=== PATIENT | male | born 1970 | race African-American/Black ===

== ENCOUNTER 2018-03-10 06:45 | Inpatient (IN) | payer MEDICAID ==
[2018-03-10] VITALS (9 sets, daily range): BP systolic 97–121; BP diastolic 57–78
[~2018-03-10] VITALS: Ht 175.3 cm; Wt 80.4 kg
[2018-03-10] MEDS ORDERED: ASPI-1160 MT (07:46)
[2018-03-10] MEDS ORDERED: ATOR40TA70 MT (07:46)
[2018-03-10] MEDS ORDERED: FURO40TA5 PO (07:46)
[2018-03-10] MEDS ORDERED: MORP30TA66 MT (07:46)
[2018-03-10] MEDS ORDERED: CARV12.545 MT (07:46)
[2018-03-10] MEDS ORDERED: METF-414 MT (07:46)
[2018-03-10] MEDS ORDERED: POTA20TA82 PO (07:46)
[2018-03-10] MEDS ORDERED: METH-611 MT (07:46)
[2018-03-10] MEDS ORDERED: ISOS5TAB4 MT (07:46)
[2018-03-10] MEDS ORDERED: SPIR25TA6 MT (07:46)
[2018-03-10 07:59] LABS: CHLORIDE 97 mEq/L (98-107)
[2018-03-10 08:00] LABS: PARTIAL THROMBOPLASTIN TIME 27.6 sec (23.4-31.0); PROTHROMBIN TIME 10.3 sec (9.1-11.1)
[2018-03-10 08:03] LABS: HEMATOCRIT 40.3 % (42.0-52.0); HEMOGLOBIN 14.3 g/dL (14.0-18.0); MEAN CORPUSCULAR HEMOGLOBIN 29.6 pg (28.0-32.0); MEAN CORPUSCULAR VOLUME 83.6 fL (80.0-94.0); PLATELET 272 x1000/uL (130-400); RED BLOOD CELL COUNT 4.83 mill/uL (4.7-6.1); RED CELL DISTRIBUTION WIDTH 12.8 % (11.6-14.6)
[2018-03-10] MEDS ORDERED: IOHEXOL-300 100 ML BOTTLE ONE (08:16)
[2018-03-10] MEDS ORDERED: PROPOFOL 200MG/20ML VIAL IV ONE (08:23)
[2018-03-10] MEDS ORDERED: GENTAMICIN SULF 40MG/ML 2ML VIAL ONE (08:44)
[2018-03-10] MEDS ORDERED: GENTAMICIN/NS IRRIGATION 500 ML IR ONE (08:44)
[2018-03-10] MEDS ORDERED: LIDOCAINE HCL 1% 20ML VIAL (Pyxis) INJ ONE (08:58)
[2018-03-10] MEDS ORDERED: HYDROMORPHONE HCL/PF 2MG/ML CPJ IV PRN ×2 (10:15→10:30)
[2018-03-10] MEDS ORDERED: HYDROCODONE/ACETAMINOPHEN 5/325MG TABLET PO PRN (10:15)
[2018-03-10] MEDS ORDERED: ONDANSETRON HCL 4MG/2ML INJ IV PRN (10:30)
[2018-03-10] MEDS ORDERED: METHADONE HCL 10MG TABLET PO SCH (13:25)
[2018-03-10] MEDS ORDERED: PHENYLEPHRINE HCL 10 MG/ML 1ML (IV VIAL) IV ONE (13:44)
[2018-03-10] MEDS ORDERED: MIDAZOLAM HCL 2 MG/2 ML VIAL ONE (13:44)
[2018-03-10] MEDS: ISOSORBIDE DINITRATE 10MG TABLET PO SCH (14:13)
[2018-03-10] MEDS: POTASSIUM CHLORIDE 20MEQ TABLET SR PO SCH ×2 (15:07→17:41)
[2018-03-10] MEDS: CARVEDILOL 12.5MG TABLET PO SCH (17:42)
[2018-03-10] MEDS: FUROSEMIDE 40MG TABLET PO SCH (20:22)
[2018-03-10] MEDS: METHADONE HCL 10MG TABLET PO SCH (20:22)
[2018-03-10] MEDS ORDERED: ATORVASTATIN CALCIUM 40MG TABLET PO SCH (21:00)
[2018-03-11] VITALS (11 sets, daily range): BP systolic 99–127; BP diastolic 60–78
[2018-03-11] MEDS: ISOSORBIDE DINITRATE 10MG TABLET PO SCH ×2 (08:35→12:19)
[2018-03-11] MEDS: POTASSIUM CHLORIDE 20MEQ TABLET SR PO SCH ×2 (08:40→12:24)
[2018-03-11] MEDS: FUROSEMIDE 40MG TABLET PO SCH (08:41)
[2018-03-11] MEDS: METHADONE HCL 10MG TABLET PO SCH ×2 (08:42→12:24)
[2018-03-11] MEDS ORDERED: SPIRONOLACTONE 25MG TABLET PO SCH (09:00)
[2018-03-11] MEDS ORDERED: ASPIRIN 81MG TABLET PO SCH (09:00)
[2018-03-11] MEDS: CARVEDILOL 12.5MG TABLET PO SCH (10:05)
[2018-03-11 10:15] LABS: BASOPHILS % 0.6 % (0.0-2.0); EOSINOPHILS % 7.5 % (0.0-5.0); HEMATOCRIT. 40.9 % (42.0-52.0); HEMOGLOBIN. 14.5 g/dL (14.0-18.0); LYMPHOCYTES % 32.7 % (20.0-50.0); MEAN CORPUSCULAR VOLUME 84.6 fL (80.0-94.0); MEAN PLATELET VOLUME 8.4 fl (7.4-10.4); MONOCYTES % 11.5 % (2.0-8.0); NEUTROPHILS % 47.7 % (40.0-76.0); PLATELET 247 x1000/uL (130-400); RED BLOOD CELL COUNT 4.84 mill/uL (4.7-6.1); RED CELL DISTRIBUTION WIDTH 12.6 % (11.6-14.6)
[2018-03-11 10:52] LABS: CHLORIDE 100 mEq/L (98-107)
== END 2018-03-11 13:40 | disposition home or self-care (01) | DRG 161 ==
LOC: CCL 06:45 → 3WST 06:46
PROVIDERS: ADMIT Internal Medicine Clinical Cardiac Electrophysiology; ATTEND Internal Medicine Clinical Cardiac Electrophysiology
PROC: 02HK3KZ Insertion of Defibrillator Lead into Right Ventricle, Percutaneous Approach (ICD-10-PCS; 2018-03-10)
PROC: 0JH608Z Insertion of Defibrillator Generator into Chest Subcutaneous Tissue and Fascia, Open Approach (ICD-10-PCS; principal; 2018-03-10 08:00)
DX: I42.0 Dilated cardiomyopathy (principal); I11.0 Hypertensive heart disease with heart failure; I50.22 Chronic systolic (congestive) heart failure; E11.9 Type 2 diabetes mellitus without complications; F10.21 Alcohol dependence, in remission; J44.9 Chronic obstructive pulmonary disease, unspecified; Z77.22 Contact with and (suspected) exposure to environmental tobacco smoke (acute) (chronic); Z79.4 Long term (current) use of insulin; Z87.891 Personal history of nicotine dependence
CPT/HCPCS: 33249; 36415; 71045; 75820; 80048; 85027; 93005; 93641; C1722; C1892; C1893; C1899; J1580; J1644; J2250; J2370; J2704; J3490; J7050; Q9967

== ENCOUNTER 2025-03-10 11:14 | Inpatient (IN) | payer MEDICAID ==
[~2025-03-10] VITALS: Ht 175.3 cm; Wt 76.7 kg
[~2025-03-10 11:14] MED LIST: ASPI-1160 MT; ATOR40TA70 MT; CARV12.545 MT; FURO40TA5 PO; ISOS5TAB4 MT; METH-819 MT; MORP30TA66 MT; POTA-205 PO; SPIR25TA6 MT
[2025-03-10 11:16] VITALS: O2SAT 98
[2025-03-10] MEDS: MORPHINE SULFATE 4 MG/ML INJ (FOR IV/IM USE) IV ONE (11:36)
[2025-03-10 11:50] LABS: BASOPHILS % 0.8 % (0.0-2.0); EOSINOPHILS % 12.3 % (0.0-5.0); HEMATOCRIT. 33.4 % (42.0-52.0); HEMOGLOBIN. 11.3 g/dL (14.0-18.0); LYMPHOCYTES % 32.8 % (20.0-50.0); MEAN PLATELET VOLUME 8.9 fl (7.4-10.4); MONOCYTES % 11.1 % (2.0-8.0); NEUTROPHILS % 43.0 % (40.0-76.0); PLATELET 133 x1000/uL (130-400); RED BLOOD CELL COUNT 3.91 mill/uL (4.7-6.1); RED CELL DISTRIBUTION WIDTH 14.6 % (11.6-14.6)
[2025-03-10 12:02] LABS: CREATININE 1.4 mg/dL (0.6-1.3); UREA NITROGEN BLOOD 20 mg/dL (9-23)
[2025-03-10 12:03] LABS: TROPONIN I HIGH SENSITIVITY 6 ng/L (3.0-53)
[2025-03-10 14:50] VITALS: BP 110/74; PULSE 87; RESP 13; TEMP 36.8; O2SAT 98
[2025-03-10 15:01] VITALS: BP 110/74; PULSE 82; RESP 13; TEMP 36.8072
[2025-03-10] MEDS ORDERED: MAGNESIUM/ALUMINUM HYDROXIDE/SIMETHICONE 30ML UDC PO PRN (15:15)
[2025-03-10] MEDS ORDERED: MORPHINE SULFATE 2 MG/ML INJ (NOT FOR IM USE) IV PRN (15:15)
[2025-03-10] MEDS ORDERED: ONDANSETRON HCL 4MG/2ML INJ IV PRN (15:15)
[2025-03-10] MEDS ORDERED: ACETAMINOPHEN 325MG TABLET PO PRN (15:15)
[2025-03-10] MEDS ORDERED: CLONIDINE 0.1MG TABLET PO PRN (15:15)
[2025-03-10] MEDS ORDERED: ZOLPIDEM TARTRATE 5MG TABLET PO PRN (15:15)
[2025-03-10] MEDS: HYDROCODONE/ACETAMINOPHEN 5/325MG TABLET PO PRN (15:31)
[2025-03-10] MEDS ORDERED: NALOXONE HCL 0.4MG/ML VIAL IV PRN (15:45)
[2025-03-10 16:00] VITALS: BP 102/88; PULSE 76; RESP 14; TEMP 36.7; O2SAT 99
[2025-03-10 16:16] LABS: *AMPHETAMINES SCREEN URINE PRESUMPTIVE POSITIVE (NEGATIVE); *BARBITURATES SCREEN URINE NEGATIVE (NEGATIVE); *BENZODIAZEPINES SCREEN URINE NEGATIVE (NEGATIVE); *COCAINE SCREEN URINE NEGATIVE (NEGATIVE); METHADONE URINE SCREEN NEGATIVE (NEGATIVE); OPIATES URINE SCREEN PRESUMPTIVE POSITIVE (NEGATIVE); PHENCYCLIDINE URINE SCREEN NEGATIVE (NEGATIVE)
[2025-03-10 16:17] LABS: CANNABINOID URINE SCREEN NEGATIVE (NEGATIVE); ECSTASY MDMA SCREEN URINE NEGATIVE (NEGATIVE)
[2025-03-10 16:25] LABS: CLARITY URINE CLEAR (CLEAR); COLOR URINE DARK YELLOW (YELLOW); GLUCOSE URINE NEGATIVE (NEGATIVE); KETONES URINE NEGATIVE (NEGATIVE); LEUKOCYTE ESTERASE URINE NEGATIVE (NEGATIVE); NITRITE URINE NEGATIVE (NEGATIVE); OCCULT BLOOD URINE NEGATIVE (NEGATIVE); PH URINE 7.0 (4.5-8.0); PROTEIN URINE TRACE (NEGATIVE); SPECIFIC GRAVITY URINE 1.017 (1.005-1.030); UROBILINOGEN URINE 4.0 E.U./dL (0.2-1.0)
[2025-03-10 16:46] LABS: BACTERIA URINE NONE SEEN; RBC URINE NONE SEEN /hpf (0-2); WBC URINE NONE SEEN /hpf (0-2)
[2025-03-10] MEDS ORDERED: METHADONE HCL 10MG TABLET PO SCH (17:00)
[2025-03-10] MEDS: ENOXAPARIN 40MG/0.4ML SYR SUBCUT SCH (17:37)
[2025-03-10] MEDS: ISOSORBIDE DINITRATE 10MG TABLET PO SCH (17:38)
[2025-03-10] MEDS: FUROSEMIDE 40MG TABLET PO SCH (17:38)
[2025-03-10 20:00] VITALS: BP 114/75; PULSE 86; RESP 18; TEMP 36.6; O2SAT 96
[2025-03-10] MEDS: ATORVASTATIN CALCIUM 40MG TABLET PO SCH (20:07)
[2025-03-10] MEDS: CARVEDILOL 12.5MG TABLET PO SCH (20:08)
[2025-03-10] MEDS ORDERED: MORPHINE SULFATE 4 MG/ML INJ (FOR IV/IM USE) IV PRN (22:15)
[2025-03-11] VITALS: BP 99/57; PULSE 80; RESP 18; TEMP 36.6; O2SAT 96
[2025-03-11 00:50] LABS: TROPONIN I HIGH SENSITIVITY 9 ng/L (3.0-53)
[2025-03-11 04:00] VITALS: BP 96/62; PULSE 78; RESP 18; TEMP 36.3; O2SAT 99
[2025-03-11 07:09] LABS: BASOPHILS % 0.7 % (0.0-2.0); EOSINOPHILS % 14.2 % (0.0-5.0); HEMATOCRIT. 32.0 % (42.0-52.0); HEMOGLOBIN. 10.7 g/dL (14.0-18.0); LYMPHOCYTES % 33.1 % (20.0-50.0); MEAN PLATELET VOLUME 9.1 fl (7.4-10.4); MONOCYTES % 13.1 % (2.0-8.0); NEUTROPHILS % 38.9 % (40.0-76.0); PLATELET 126 x1000/uL (130-400); RED BLOOD CELL COUNT 3.73 mill/uL (4.7-6.1); RED CELL DISTRIBUTION WIDTH 14.7 % (11.6-14.6)
[2025-03-11 07:30] LABS: TROPONIN I HIGH SENSITIVITY 8 ng/L (3.0-53)
[2025-03-11 07:40] LABS: CREATININE 1.5 mg/dL (0.6-1.3)
[2025-03-11 07:41] LABS: UREA NITROGEN BLOOD 19.0 mg/dL (9-23)
[2025-03-11 08:00] VITALS: BP 92/70; PULSE 69; RESP 16; TEMP 36.4; O2SAT 98
[2025-03-11 08:18] LABS: HEPATITIS C AB NON REACTIVE (Neg) (Negative)
[2025-03-11] MEDS: ASPIRIN 81MG TABLET PO SCH (08:25)
[2025-03-11] MEDS: SPIRONOLACTONE 25MG TABLET PO SCH (08:25)
[2025-03-11] MEDS: PANTOPRAZOLE SODIUM 40 MG/VIAL IV SCH (08:25)
[2025-03-11] MEDS: POTASSIUM CHLORIDE 20MEQ TABLET SR PO SCH (08:26)
[2025-03-11 12:00] VITALS: BP 116/84; PULSE 75; RESP 14; TEMP 36.4; O2SAT 98
[2025-03-11] MEDS ORDERED: ASPI-986 PO (12:44)
[2025-03-11] MEDS ORDERED: ALLO300T2 MT (12:44)
[2025-03-11] MEDS ORDERED: FERR325T6 MT (12:44)
[2025-03-11] MEDS ORDERED: SENN-174 PO (12:44)
[2025-03-11] MEDS ORDERED: GABA-1180 MT (12:44)
[2025-03-11] MEDS ORDERED: ISOS10TA2 MT (12:44)
[2025-03-11] MEDS ORDERED: CARV3.1242 MT (12:44)
[2025-03-11] MEDS ORDERED: CHOL400D7 PO (12:44)
[2025-03-11] MEDS ORDERED: FURO-151 MT (12:44)
[2025-03-11] MEDS ORDERED: SACU1TAB MT (12:44)
[2025-03-11] MEDS ORDERED: ESCI-7 MT (12:44)
[2025-03-11] MEDS ORDERED: APIX5TAB MT (12:44)
[2025-03-11] MEDS: LORAZEPAM 2MG/ML UD SYRINGE IV PRN (13:57)
[2025-03-11 15:09] VITALS: BP 116/84; PULSE 75; RESP 14; TEMP 97.9
[2025-03-11 16:00] VITALS: BP 108/66; PULSE 77; RESP 14; TEMP 36.8; O2SAT 98
== END 2025-03-11 20:15 | disposition home or self-care (01) | DRG 812 ==
LOC: ER 11:14 → 3WST 13:02 → EDBEDREQTM 13:24 → EDBEDREQ 13:24 → ENRESERV 14:04
PROVIDERS: ADMIT Internal Medicine; ATTEND Internal Medicine
DX: T43.651A Poisoning by methamphetamines accidental (unintentional), initial encounter (principal); I50.23 Acute on chronic systolic (congestive) heart failure; I11.0 Hypertensive heart disease with heart failure; E78.5 Hyperlipidemia, unspecified; F15.10 Other stimulant abuse, uncomplicated; Z79.82 Long term (current) use of aspirin; Z95.810 Presence of automatic (implantable) cardiac defibrillator; Y92.89 Other specified places as the place of occurrence of the external cause
CPT/HCPCS: 36415; 71045; 80048; 80305; 81003; 84443; 84484; 85025; 86705; 87340; 93005; 96374; 99285; A4565; J1650; J2060; J2270; J2470